=== PATIENT | female | born 1935 | race Caucasian/White ===

== ENCOUNTER → 2017-01-12 | Outpatient (CLI) | payer MEDICARE, BC ==
[~2017-01-12] MED LIST: ASPI-515 PO; ATEN50TA41 PO; FLUT10SP INH; HYDR-3138 PO; LEVO75TA5 PO; SERT100T PO; SERT100T5 PO; SIMV20TA3 PO; SPIR50TA2 PO
== END | disposition home or self-care (01) ==
LOC: CFH 13:25
PROVIDERS: ATTEND Family Medicine
DX: Z13.820 Encounter for screening for osteoporosis (principal); M85.89 Other specified disorders of bone density and structure, multiple sites
CPT/HCPCS: 77080

== ENCOUNTER 2017-04-16 14:32 | Emergency (ER) | payer MEDICARE, BC ==
[~2017-04-16] VITALS: Ht 162.6 cm; Wt 87.9 kg
[2017-04-16 15:46] LABS: BLOOD UREA NITROGEN 9 mg/dL (7-18)
[2017-04-16 15:51] LABS: ASPARTATE AMINO TRANSFERASE 24 U/L (15-37); IS PT STATUS REG ER OR PRE ER? YES
[2017-04-16 17:27] VITALS: BP 153/65
== END 2017-04-16 17:29 | disposition home or self-care (01) ==
LOC: ED 17:26
DX: I50.1 Left ventricular failure, unspecified (principal); J32.1 Chronic frontal sinusitis; E78.5 Hyperlipidemia, unspecified; I10 Essential (primary) hypertension
CPT/HCPCS: 36415; 80053; 83880; 84484; 85025; 93005; 99285

== ENCOUNTER → 2017-05-12 | Outpatient (CLI) | payer MEDICARE, BC ==
[~2017-05-12] MED LIST changes: +OMNIPAQUE 350 MG/ML, 75ML BOTTLE ONE
== END | disposition home or self-care (01) ==
LOC: CFH 11:05
PROVIDERS: ATTEND Family Medicine
DX: I51.7 Cardiomegaly (principal); J98.4 Other disorders of lung; R93.8 Abnormal findings on diagnostic imaging of other specified body structures; I25.10 Atherosclerotic heart disease of native coronary artery without angina pectoris; I70.0 Atherosclerosis of aorta; K76.0 Fatty (change of) liver, not elsewhere classified; K76.89 Other specified diseases of liver; M48.56XA Collapsed vertebra, not elsewhere classified, lumbar region, initial encounter for fracture; Z90.49 Acquired absence of other specified parts of digestive tract
CPT/HCPCS: 71260; Q9967

== ENCOUNTER 2017-07-18 12:29 | Emergency (ER) | payer MEDICARE, BC ==
[~2017-07-18] VITALS: Ht 160 cm; Wt 90.9 kg
[~2017-07-18 12:29] MED LIST changes: -HYDR-3138 PO; +HYDR-3237 PO; -OMNIPAQUE 350 MG/ML, 75ML BOTTLE ONE
[2017-07-18 12:30] VITALS: BP 188/77
== END 2017-07-18 14:14 | disposition home or self-care (01) ==
LOC: ED 14:00
DX: S00.12XA Contusion of left eyelid and periocular area, initial encounter (principal); E78.5 Hyperlipidemia, unspecified; I10 Essential (primary) hypertension; W19.XXXA Unspecified fall, initial encounter; Y93.89 Activity, other specified; Y92.89 Other specified places as the place of occurrence of the external cause; Y99.9 Unspecified external cause status
CPT/HCPCS: 70450; 70486; 99284

== ENCOUNTER 2019-03-04 11:42 | Inpatient (IN) | payer MEDICARE, BC ==
[~2019-03-04] VITALS: Ht 162.6 cm; Wt 89.9 kg
[~2019-03-04 11:42] MED LIST changes: +SERT100T32 PO; -SERT100T5 PO; -SPIR50TA2 PO; +SPIR50TA4 PO
[2019-03-04] MEDS ORDERED: ASPIRIN 81 MG TABLET CHEW PO ONE (12:00)
[2019-03-04 12:15] LABS: BASOPHILS # (AUTO) 0.02 x10^3/uL (0-0.1); BASOPHILS % (AUTO) 0 % (0-1); EOSINOPHILS # (AUTO) 0.15 x10^3/uL (0-0.4); EOSINOPHILS % (AUTO) 2 % (1-7); LYMPHOCYTES # (AUTO) 1.69 x10^3/uL (1-3.4); LYMPHOCYTES % (AUTO) 20 % (22-44); MD NO; MEAN CORPUSCULAR HEMOGLOBIN 31.2 pg (27.0-34.8); MEAN CORPUSCULAR HGB CONC 32.9 g/dL (32.4-35.8); MEAN CORPUSCULAR VOLUME 94.9 fL (80-100); MEAN PLATELET VOLUME 8.1 fL (7.4-10.4); MONOCYTES # (AUTO) 0.38 x10^3/uL (0.2-0.8); MONOCYTES % (AUTO) 5 % (2-9); NEUTROPHILS # (AUTO) 6.12 x10^3/uL (1.8-6.8); NEUTROPHILS % (AUTO) 73 % (42-75); PLATELET COUNT 204 x10^3/uL (130-400); RED BLOOD COUNT 4.49 x10^6/uL (3.82-5.3); RED CELL DISTRIBUTION WIDTH 13.8 % (9.6-15.2)
[2019-03-04 12:28] LABS: ANION GAP 7 mmol/L (5-15); CALCIUM 10.2 mg/dL (8.5-10.1); CHLORIDE 102 mmol/L (98-107)
[2019-03-04 12:34] LABS: ALANINE AMINOTRANSFERASE 49 U/L (12-78); ALKALINE PHOSPHATASE 74 U/L (45-117); BILIRUBIN,TOTAL 0.9 mg/dL (0.2-1.0); CREATININE 0.78 mg/dL (0.55-1.02); TOTAL PROTEIN 7.6 g/dL (6.4-8.2); TROPONIN I < 0.015 ng/mL (0.000-0.045)
--- NOTE | 2019-03-04 12:37 | NUR ---
CARDIZEM GIVEN AND HR AFIB IN 80'S, PT RESTING IN [facility], STATES SHE "CANNOT FEEL HEART ANYMORE". CALL LIGHT WITHIN REACH
[2019-03-04] MEDS ORDERED: OMEP-110 PO (13:02)
[2019-03-04] MEDS ORDERED: ASPIRIN 81 MG TABLET CHEW ONE (13:15)
[2019-03-04] MEDS ORDERED: DILTIAZEM 5 MG/ML, 10ML ONE (13:22)
--- NOTE | 2019-03-04 13:39 | NUR ---
MD AT BEDSIDE, PT TB ADMITTED. PT AMBULATED TO BATHROOM. HR [id number] AFTER AFTER AMBULTION. PT STATES SHE STILL FEELS BETTER. CALL LIGHT WITHIN REACH, AT [facility]
[2019-03-04] MEDS ORDERED: DILTIAZEM 5 MG/ML, 5ML IVPush ONE (14:00)
--- NOTE | 2019-03-04 14:46 | NUR ---
PT RESTING IN [facility] GIVEN. PT TO BE ADMITTED, AWAITING ADMIT ORDERS
[2019-03-04] MEDS ORDERED: FUROSEMIDE 20 MG/2 ML ONE (14:55)
[2019-03-04] MEDS: FUROSEMIDE 20 MG/2 ML IV SCH (14:58)
--- NOTE | 2019-03-04 15:42 | NUR ---
ADMITTING HOSPITALIST AT BEDSIDE
[2019-03-04] MEDS ORDERED: DOCUSATE 100 MG CAPSULE PO PRN (16:00)
[2019-03-04] MEDS ORDERED: ONDANSETRON ODT 4 MG PO PRN (16:00)
[2019-03-04] MEDS ORDERED: LABETALOL 5 MG/ML SYRINGE IVPush PRN (16:00)
[2019-03-04] MEDS ORDERED: ENALAPRILAT 1.25 MG/ML, 2ML IVPush PRN (16:00)
[2019-03-04] MEDS ORDERED: POLYETHYLENE GLYCOL 17 GM PACKET PO PRN (16:00)
[2019-03-04] MEDS ORDERED: ACETAMINOPHEN 325 MG TABLET PO PRN (16:00)
[2019-03-04] MEDS ORDERED: BISACODYL 10 MG SUPP PR PRN (16:00)
[2019-03-04] MEDS ORDERED: ONDANSETRON 2MG/ML, 2ML IVPush PRN (16:00)
--- NOTE | 2019-03-04 16:34 | NUR ---
REPORT TO MICHELLE MATA
[2019-03-04 17:26] VITALS: BP 162/103
[2019-03-04] MEDS ORDERED: DILTIAZEM 5 MG/ML, 5ML IVPush PRN (17:30)
[2019-03-04] MEDS ORDERED: ENOXAPARIN 40 MG/0.4 ML SQ SCH (18:00)
[2019-03-04 20:49] VITALS: BP 117/71
[2019-03-04] MEDS: SIMVASTATIN 20 MG TABLET PO SCH (21:23)
[2019-03-05 03:30] VITALS: BP 151/87
[2019-03-05 06:01] LABS: BASOPHILS # (AUTO) 0.03 x10^3/uL (0-0.1); BASOPHILS % (AUTO) 0 % (0-1); EOSINOPHILS # (AUTO) 0.26 x10^3/uL (0-0.4); EOSINOPHILS % (AUTO) 3 % (1-7); LYMPHOCYTES # (AUTO) 1.64 x10^3/uL (1-3.4); LYMPHOCYTES % (AUTO) 21 % (22-44); MD NO; MEAN CORPUSCULAR HEMOGLOBIN 31.5 pg (27.0-34.8); MEAN CORPUSCULAR HGB CONC 33.1 g/dL (32.4-35.8); MEAN CORPUSCULAR VOLUME 95.1 fL (80-100); MEAN PLATELET VOLUME 8.4 fL (7.4-10.4); MONOCYTES # (AUTO) 0.52 x10^3/uL (0.2-0.8); MONOCYTES % (AUTO) 7 % (2-9); NEUTROPHILS # (AUTO) 5.47 x10^3/uL (1.8-6.8); NEUTROPHILS % (AUTO) 69 % (42-75); PLATELET COUNT 185 x10^3/uL (130-400); RED BLOOD COUNT 4.46 x10^6/uL (3.82-5.3); RED CELL DISTRIBUTION WIDTH 13.8 % (9.6-15.2)
[2019-03-05 06:33] LABS: ANION GAP 7 mmol/L (5-15); CALCIUM 10.3 mg/dL (8.5-10.1); CHLORIDE 104 mmol/L (98-107)
[2019-03-05 06:42] LABS: CREATININE 0.68 mg/dL (0.55-1.02)
[2019-03-05 06:58] VITALS: BP 138/89
[2019-03-05] MEDS: ASPIRIN 81 MG TABLET EC PO SCH (08:13)
[2019-03-05] MEDS: SPIRONOLACTONE 50 MG TABLET PO SCH (08:13)
[2019-03-05] MEDS: FUROSEMIDE 20 MG/2 ML IV SCH ×2 (08:13→17:15)
[2019-03-05] MEDS: OMEPRAZOLE 20 MG CAPSULE.DR PO SCH (08:13)
[2019-03-05] MEDS: LEVOTHYROXINE 75 MCG TABLET PO SCH (08:14)
[2019-03-05] MEDS ORDERED: ATENOLOL 50 MG TABLET PO SCH (09:00)
[2019-03-05] MEDS ORDERED: METOPROLOL 1 MG/ML, 5ML IVPush ONE (09:00)
[2019-03-05] MEDS: ENOXAPARIN 100 MG/ML SQ SCH ×2 (11:27→23:40)
[2019-03-05] MEDS: LISINOPRIL 5 MG TABLET PO SCH (11:27)
[2019-03-05 12:23] VITALS: BP 114/80
[2019-03-05 20:03] VITALS: BP 110/65
[2019-03-05] MEDS: SIMVASTATIN 20 MG TABLET PO SCH (20:26)
[2019-03-06 01:50] VITALS: BP 124/88
[2019-03-06 05:27] LABS: BASOPHILS # (AUTO) 0.02 x10^3/uL (0-0.1); BASOPHILS % (AUTO) 0 % (0-1); EOSINOPHILS # (AUTO) 0.35 x10^3/uL (0-0.4); EOSINOPHILS % (AUTO) 4 % (1-7); LYMPHOCYTES # (AUTO) 2.04 x10^3/uL (1-3.4); LYMPHOCYTES % (AUTO) 22 % (22-44); MD NO; MEAN CORPUSCULAR HEMOGLOBIN 31.2 pg (27.0-34.8); MEAN CORPUSCULAR HGB CONC 32.9 g/dL (32.4-35.8); MEAN PLATELET VOLUME 8.3 fL (7.4-10.4); MONOCYTES % (AUTO) 8 % (2-9); NEUTROPHILS # (AUTO) 6.05 x10^3/uL (1.8-6.8); NEUTROPHILS % (AUTO) 66 % (42-75); PLATELET COUNT 195 x10^3/uL (130-400); RED BLOOD COUNT 4.55 x10^6/uL (3.82-5.3)
[2019-03-06 05:41] LABS: CHLORIDE 100 mmol/L (98-107)
[2019-03-06 05:54] LABS: ALANINE AMINOTRANSFERASE 42 U/L (12-78); ALBUMIN 3.6 g/dL (3.4-5.0); ALKALINE PHOSPHATASE 64 U/L (45-117); ANION GAP 6 mmol/L (5-15); BILIRUBIN,TOTAL 0.7 mg/dL (0.2-1.0); CALCIUM 9.9 mg/dL (8.5-10.1); CREATININE 0.75 mg/dL (0.55-1.02); TOTAL PROTEIN 7.2 g/dL (6.4-8.2)
[2019-03-06] MEDS ORDERED: METOPROLOL SUCCINATE 25 MG TAB.ER.24H PO SCH (06:00)
[2019-03-06 07:20] VITALS: BP 133/86
[2019-03-06] MEDS: FUROSEMIDE 20 MG/2 ML IV SCH ×3 (08:00→17:54)
[2019-03-06] MEDS: OMEPRAZOLE 20 MG CAPSULE.DR PO SCH (08:01)
[2019-03-06] MEDS: SPIRONOLACTONE 50 MG TABLET PO SCH (08:01)
[2019-03-06] MEDS: LEVOTHYROXINE 75 MCG TABLET PO SCH (08:01)
[2019-03-06] MEDS: ASPIRIN 81 MG TABLET EC PO SCH (08:01)
[2019-03-06] MEDS: LISINOPRIL 5 MG TABLET PO SCH (08:01)
[2019-03-06] MEDS ORDERED: METOPROLOL SUCCINATE 25 MG TAB.ER.24H PO ONE (11:30)
[2019-03-06 12:34] VITALS: BP 116/65
[2019-03-06] MEDS ORDERED: DIGOXIN 0.25 MG/ML, 2ML IVPush ONE ×3 (15:30→21:30)
[2019-03-06] MEDS ORDERED: DIGOXIN 0.25 MG/ML, 2ML IV ONE ×2 (15:30)
[2019-03-06 19:41] VITALS: BP 119/65
[2019-03-06] MEDS: SIMVASTATIN 20 MG TABLET PO SCH (20:32)
[2019-03-06] MEDS: APIXABAN 5 MG TABLET PO SCH (20:32)
[2019-03-07 01:27] VITALS: BP 122/94
[2019-03-07] MEDS ORDERED: DIGOXIN 0.25 MG/ML, 2ML IVPush ONE ×2 (03:30)
[2019-03-07 05:24] LABS: BASOPHILS # (AUTO) 0.02 x10^3/uL (0-0.1); BASOPHILS % (AUTO) 0 % (0-1); EOSINOPHILS # (AUTO) 0.31 x10^3/uL (0-0.4); EOSINOPHILS % (AUTO) 3 % (1-7); LYMPHOCYTES # (AUTO) 2.03 x10^3/uL (1-3.4); LYMPHOCYTES % (AUTO) 21 % (22-44); MD NO; MEAN CORPUSCULAR HEMOGLOBIN 31.4 pg (27.0-34.8); MEAN CORPUSCULAR HGB CONC 33.1 g/dL (32.4-35.8); MEAN CORPUSCULAR VOLUME 95.1 fL (80-100); MONOCYTES # (AUTO) 0.67 x10^3/uL (0.2-0.8); MONOCYTES % (AUTO) 7 % (2-9); NEUTROPHILS # (AUTO) 6.85 x10^3/uL (1.8-6.8); NEUTROPHILS % (AUTO) 69 % (42-75); PLATELET COUNT 190 x10^3/uL (130-400); RED BLOOD COUNT 4.91 x10^6/uL (3.82-5.3); RED CELL DISTRIBUTION WIDTH 13.9 % (9.6-15.2)
[2019-03-07 05:35] LABS: ALANINE AMINOTRANSFERASE 41 U/L (12-78); ALBUMIN 3.8 g/dL (3.4-5.0); ANION GAP 7 mmol/L (5-15); CALCIUM 10.2 mg/dL (8.5-10.1); CHLORIDE 98 mmol/L (98-107)
[2019-03-07 05:37] LABS: ALKALINE PHOSPHATASE 66 U/L (45-117); BILIRUBIN,TOTAL 0.8 mg/dL (0.2-1.0); TOTAL PROTEIN 7.2 g/dL (6.4-8.2)
[2019-03-07] MEDS ORDERED: METOPROLOL SUCCINATE 50 MG TAB.ER.24H PO SCH ×2 (06:00)
[2019-03-07] MEDS ORDERED: METOPROLOL SUCCINATE 25 MG TAB.ER.24H ONE (08:30)
[2019-03-07 08:37] VITALS: BP 108/72
[2019-03-07] MEDS: APIXABAN 5 MG TABLET PO SCH (08:46)
[2019-03-07] MEDS: LEVOTHYROXINE 75 MCG TABLET PO SCH (08:46)
[2019-03-07] MEDS: SPIRONOLACTONE 50 MG TABLET PO SCH (08:47)
[2019-03-07] MEDS: LISINOPRIL 5 MG TABLET PO SCH (08:47)
[2019-03-07] MEDS: OMEPRAZOLE 20 MG CAPSULE.DR PO SCH (08:47)
[2019-03-07] MEDS: ASPIRIN 81 MG TABLET EC PO SCH (08:47)
[2019-03-07] MEDS ORDERED: FUROSEMIDE 40 MG TABLET PO SCH (09:00)
[2019-03-07 13:50] VITALS: BP 112/73
[2019-03-07] MEDS ORDERED: APIX5TAB PO (14:26)
[2019-03-07] MEDS ORDERED: DIGO250T PO (14:26)
[2019-03-07] MEDS ORDERED: METO-93 PO (14:26)
[2019-03-07] MEDS ORDERED: FURO40TA6 PO (14:26)
[2019-03-08] MEDS ORDERED: DIGOXIN 0.25 MG TABLET PO SCH (09:00)
== END 2019-03-07 17:15 | disposition home health service (06) | DRG 291 ==
LOC: ED 13:03 → EDIP 16:16 → 5SO 17:14 → DCLOUNGE 03-07 16:35
PROVIDERS: ADMIT Hospitalist; ATTEND Hospitalist
DX: I11.0 Hypertensive heart disease with heart failure (principal); J96.00 Acute respiratory failure, unspecified whether with hypoxia or hypercapnia; E87.1 Hypo-osmolality and hyponatremia; I50.43 Acute on chronic combined systolic (congestive) and diastolic (congestive) heart failure; I48.2 Chronic atrial fibrillation; E03.9 Hypothyroidism, unspecified; E78.5 Hyperlipidemia, unspecified; F32.9 Major depressive disorder, single episode, unspecified; F41.9 Anxiety disorder, unspecified; G89.29 Other chronic pain; M54.9 Dorsalgia, unspecified; Z88.0 Allergy status to penicillin; I35.8 Other nonrheumatic aortic valve disorders; I45.10 Unspecified right bundle-branch block; Z79.82 Long term (current) use of aspirin; Z80.0 Family history of malignant neoplasm of digestive organs; Z82.3 Family history of stroke; Z90.710 Acquired absence of both cervix and uterus
CPT/HCPCS: 36415; 71046; 80048; 80053; 83735; 83880; 84443; 84484; 85025; 93005; 93306; 96374; 96375; 99285; G0378; J1650; J1160; J1940

== ENCOUNTER 2019-10-02 12:05 | Inpatient (IN) | payer MEDICARE, BC ==
[~2019-10-02] VITALS: Ht 160 cm; Wt 72.5 kg
[~2019-10-02 12:05] MED LIST changes: +APIX5TAB PO; +DIGO250T PO; +FURO40TA6 PO; +METO-93 PO; +OMEP-110 PO
[2019-10-02 13:18] LABS: PH, VENOUS 7.309 pH (7.320-7.420)
[2019-10-02 13:19] LABS: BASOPHILS # (AUTO) 0.05 x10^3/uL (0-0.1); BASOPHILS % (AUTO) 1 % (0-1); EOSINOPHILS # (AUTO) 0.06 x10^3/uL (0-0.4); EOSINOPHILS % (AUTO) 1 % (1-7); LYMPHOCYTES # (AUTO) 1.11 x10^3/uL (1-3.4); LYMPHOCYTES % (AUTO) 15 % (22-44); MD NO; MEAN CORPUSCULAR HEMOGLOBIN 30.2 pg (27.0-34.8); MEAN CORPUSCULAR HGB CONC 33.2 g/dL (32.4-35.8); MEAN CORPUSCULAR VOLUME 90.9 fL (80-100); MEAN PLATELET VOLUME 9.8 fL (7.4-10.4); MONOCYTES # (AUTO) 0.42 x10^3/uL (0.2-0.8); MONOCYTES % (AUTO) 6 % (2-9); NEUTROPHILS # (AUTO) 5.78 x10^3/uL (1.8-6.8); NEUTROPHILS % (AUTO) 78 % (42-75); PLATELET COUNT 157 x10^3/uL (130-400); RED BLOOD COUNT 5.26 x10^6/uL (3.82-5.3); RED CELL DISTRIBUTION WIDTH 15.5 % (9.6-15.2)
[2019-10-02 13:32] LABS: ALANINE AMINOTRANSFERASE 19 U/L (12-78); ALBUMIN 3.6 g/dL (3.4-5.0); ANION GAP 18 mmol/L (5-15); CALCIUM 10.2 mg/dL (8.5-10.1); CHLORIDE 91 mmol/L (98-107); CREATININE 0.97 mg/dL (0.55-1.02)
[2019-10-02 13:34] LABS: ALKALINE PHOSPHATASE 95 U/L (45-117); BILIRUBIN,TOTAL 0.8 mg/dL (0.2-1.0); TOTAL PROTEIN 7.4 g/dL (6.4-8.2)
[2019-10-02] MEDS ORDERED: SODIUM CHLORIDE 0.9% 1,000ML IVBOLUS ONE (14:00)
--- NOTE | 2019-10-02 14:01 | NUR ---
PT UPRIGHT ON GURNEY AWAKE & COMFORTABLE, RESPONDS APPROP TO STAFF, NAD, COMFORT MEASURES PROVIDED, AT BS, CALL LIGHT WITHIN REACH.
[2019-10-02 14:07] LABS: MICROSCOPIC NOT IND
[2019-10-02 14:12] LABS: ACETONE, SERUM Large (80mg/dL) mg/dL (Negative)
[2019-10-02 14:19] LABS: CULTURE INDICATED? NO
[2019-10-02] MEDS ORDERED: INSULIN REGULAR 100 UNITS/ML, 3ML VIAL SQ-INSULIN ONE (14:30)
[2019-10-02] MEDS ORDERED: INSULIN SINGLE DOSE, ER ONE (14:58)
--- NOTE | 2019-10-02 15:02 | NUR ---
PT REMAINS UPRIGHT ON GURNEY AWAKE & COMFORTABLE, RESPONDS APPROP TO STAFF, NAD, COMFORT MEASURES PROVIDED, AT BS, CALL LIGHT WITHIN REACH.
--- NOTE | 2019-10-02 15:50 | NUR ---
Pt to be admitted to [facility], room 494-2. Report called to Marcial.
[2019-10-02] MEDS ORDERED: ONDANSETRON 2MG/ML, 2ML IVPush PRN (16:00)
[2019-10-02] MEDS ORDERED: HEPARIN 5,000 UNITS/ML, 1ML SQ SCH (16:00)
[2019-10-02] MEDS ORDERED: INSULIN LISPRO 100 UNITS/ML, PEN SQ-INSULIN SCH (16:00)
[2019-10-02] MEDS ORDERED: hydrALAzine 20 MG/ML, 1ML IVPush PRN (16:00)
[2019-10-02] MEDS ORDERED: INSULIN REGULAR 100 UNITS/ML, 3ML VIAL IVPush ONE (16:00)
[2019-10-02] MEDS ORDERED: ACETAMINOPHEN 325 MG TABLET PO PRN (16:00)
[2019-10-02 16:32] VITALS: BP 136/82
[2019-10-02] MEDS ORDERED: SIMV20TA PO (16:47)
[2019-10-02] MEDS: NS + 20MEQ KCL 1,000 ML IV SCH (17:25)
[2019-10-02] MEDS: INSULIN LISPRO 100 UNITS/ML, PEN SQ-INSULIN SCH (19:58)
[2019-10-02] MEDS: APIXABAN 5 MG TABLET PO SCH (19:59)
[2019-10-02] MEDS: INSULIN GLARGINE 100 UNITS/ML, PEN SQ-INSULIN SCH (19:59)
[2019-10-02 20:29] VITALS: BP 141/84
[2019-10-02] MEDS ORDERED: MELATONIN 5 MG TABLET PO PRN (23:30)
[2019-10-02] MEDS ORDERED: MELATONIN 3 MG TABLET ONE (23:31)
[2019-10-02] MEDS: MELATONIN 3 MG TABLET PO PRN (23:45)
[2019-10-03] MEDS: NS + 20MEQ KCL 1,000 ML IV SCH ×2 (01:47→09:30)
[2019-10-03 01:48] VITALS: BP 138/76
[2019-10-03 03:07] LABS: ANION GAP 9 mmol/L (5-15); CALCIUM 9.4 mg/dL (8.5-10.1); CHLORIDE 104 mmol/L (98-107); CREATININE 0.63 mg/dL (0.55-1.02)
[2019-10-03] MEDS ORDERED: POTASSIUM CHLORIDE 20 MEQ TAB.ER.PRT PO ONE (03:30)
[2019-10-03] MEDS ORDERED: METOPROLOL SUCCINATE 25 MG TAB.ER.24H PO SCH (06:00)
[2019-10-03 06:04] LABS: BASOPHILS # (AUTO) 0.04 x10^3/uL (0-0.1); BASOPHILS % (AUTO) 1 % (0-1); EOSINOPHILS # (AUTO) 0.22 x10^3/uL (0-0.4); EOSINOPHILS % (AUTO) 3 % (1-7); LYMPHOCYTES # (AUTO) 1.71 x10^3/uL (1-3.4); LYMPHOCYTES % (AUTO) 27 % (22-44); MD NO; MEAN CORPUSCULAR HEMOGLOBIN 29.8 pg (27.0-34.8); MEAN CORPUSCULAR HGB CONC 32.9 g/dL (32.4-35.8); MEAN CORPUSCULAR VOLUME 90.6 fL (80-100); MEAN PLATELET VOLUME 9.1 fL (7.4-10.4); MONOCYTES # (AUTO) 0.49 x10^3/uL (0.2-0.8); MONOCYTES % (AUTO) 8 % (2-9); NEUTROPHILS % (AUTO) 62 % (42-75); PLATELET COUNT 136 x10^3/uL (130-400); RED BLOOD COUNT 4.61 x10^6/uL (3.82-5.3); RED CELL DISTRIBUTION WIDTH 15.5 % (9.6-15.2)
[2019-10-03 06:09] VITALS: BP 98/62
[2019-10-03 06:12] LABS: CHLORIDE 104 mmol/L (98-107)
[2019-10-03 06:20] LABS: ANION GAP 11 mmol/L (5-15); CALCIUM 9.2 mg/dL (8.5-10.1); CREATININE 0.53 mg/dL (0.55-1.02)
[2019-10-03] MEDS: CARVEDILOL 3.125 MG TABLET PO SCH ×2 (06:34→16:56)
[2019-10-03 08:10] LABS: ANION GAP 9 mmol/L (5-15); CALCIUM 8.9 mg/dL (8.5-10.1); CHLORIDE 101 mmol/L (98-107); CREATININE 0.69 mg/dL (0.55-1.02)
[2019-10-03 08:35] VITALS: BP 104/53
[2019-10-03] MEDS: INSULIN LISPRO 100 UNITS/ML, PEN SQ-INSULIN SCH ×6 (08:46→23:24)
[2019-10-03] MEDS: SENNA/DOCUSATE TABLET PO SCH (08:47)
[2019-10-03] MEDS: LEVOTHYROXINE 75 MCG TABLET PO SCH (08:47)
[2019-10-03] MEDS: DIGOXIN 0.25 MG TABLET PO SCH (08:47)
[2019-10-03] MEDS: APIXABAN 5 MG TABLET PO SCH ×2 (08:47→20:24)
[2019-10-03] MEDS: INSULIN GLARGINE 100 UNITS/ML, PEN SQ-INSULIN SCH ×2 (08:47→20:25)
[2019-10-03 13:54] VITALS: BP 100/62
[2019-10-03 19:27] VITALS: BP 92/53
[2019-10-03 21:36] LABS: ANION GAP 7 mmol/L (5-15); CALCIUM 9.4 mg/dL (8.5-10.1); CHLORIDE 103 mmol/L (98-107); CREATININE 0.78 mg/dL (0.55-1.02)
[2019-10-04 01:00] VITALS: BP 107/80
[2019-10-04] MEDS: INSULIN LISPRO 100 UNITS/ML, PEN SQ-INSULIN SCH ×6 (02:24→20:01)
[2019-10-04] MEDS: CARVEDILOL 3.125 MG TABLET PO SCH ×3 (05:28→18:34)
[2019-10-04 06:20] LABS: ANION GAP 7 mmol/L (5-15); CALCIUM 9.7 mg/dL (8.5-10.1); CHLORIDE 110 mmol/L (98-107); CREATININE 0.44 mg/dL (0.55-1.02)
[2019-10-04] MEDS ORDERED: SODIUM CHLORIDE 0.9% 1,000ML IVBOLUS ONE (07:30)
[2019-10-04 07:37] VITALS: BP 105/79
[2019-10-04] MEDS: DIGOXIN 0.25 MG TABLET PO SCH (09:04)
[2019-10-04] MEDS: INSULIN GLARGINE 100 UNITS/ML, PEN SQ-INSULIN SCH ×2 (09:04→20:01)
[2019-10-04] MEDS: POTASSIUM CHLORIDE 20 MEQ TAB.ER.PRT PO SCH ×2 (09:05→18:34)
[2019-10-04] MEDS: SENNA/DOCUSATE TABLET PO SCH (09:05)
[2019-10-04] MEDS: APIXABAN 5 MG TABLET PO SCH ×2 (09:05→20:00)
[2019-10-04] MEDS: LEVOTHYROXINE 75 MCG TABLET PO SCH (09:05)
[2019-10-04] MEDS ORDERED: DIPHENHYDRAMINE 25 MG CAPSULE PO ONE (12:00)
[2019-10-04 12:53] VITALS: BP 103/55
[2019-10-04 18:31] VITALS: BP 109/62
[2019-10-04] MEDS: CALAMINE LOTION 180ML TP PRN (19:25)
[2019-10-04 19:50] VITALS: BP 99/60
[2019-10-04 19:59] LABS: ANION GAP 8 mmol/L (5-15); CALCIUM 9.3 mg/dL (8.5-10.1); CHLORIDE 105 mmol/L (98-107); CREATININE 0.76 mg/dL (0.55-1.02)
[2019-10-04] MEDS ORDERED: DIPHENHYDRAMINE 50 MG/ML, 1ML IVPush ONE (20:00)
[2019-10-05 00:12] VITALS: BP 123/75
[2019-10-05] MEDS ORDERED: methylPREDNISolone SOD SUCC 125 MG/2 ML IVPush ONE (00:30)
[2019-10-05 04:33] LABS: ANION GAP 6 mmol/L (5-15); CALCIUM 9.8 mg/dL (8.5-10.1); CHLORIDE 113 mmol/L (98-107); CREATININE 0.45 mg/dL (0.55-1.02)
[2019-10-05] MEDS: CARVEDILOL 3.125 MG TABLET PO SCH (05:45)
[2019-10-05] MEDS: LEVOTHYROXINE 75 MCG TABLET PO SCH (05:46)
[2019-10-05 07:38] VITALS: BP 134/77
[2019-10-05] MEDS: APIXABAN 5 MG TABLET PO SCH ×2 (09:12→20:33)
[2019-10-05] MEDS: POTASSIUM CHLORIDE 20 MEQ TAB.ER.PRT PO SCH (09:12)
[2019-10-05] MEDS: SENNA/DOCUSATE TABLET PO SCH (09:14)
[2019-10-05] MEDS: INSULIN LISPRO 100 UNITS/ML, PEN SQ-INSULIN SCH ×7 (09:15→20:34)
[2019-10-05] MEDS: INSULIN GLARGINE 100 UNITS/ML, PEN SQ-INSULIN SCH ×2 (09:16→20:34)
[2019-10-05] MEDS: METOPROLOL SUCCINATE 50 MG TAB.ER.24H PO SCH (09:18)
[2019-10-05] MEDS: DIGOXIN 0.25 MG TABLET PO SCH (09:19)
[2019-10-05] MEDS: CALAMINE LOTION 180ML TP PRN (12:26)
[2019-10-05 12:30] VITALS: BP 103/59
[2019-10-05 19:39] VITALS: BP 117/72
[2019-10-05 22:21] LABS: ANION GAP 4 mmol/L (5-15); CALCIUM 9.8 mg/dL (8.5-10.1); CHLORIDE 105 mmol/L (98-107); CREATININE 0.67 mg/dL (0.55-1.02)
[2019-10-05] MEDS: MELATONIN 3 MG TABLET PO PRN (23:46)
[2019-10-06] VITALS: BP 119/72
[2019-10-06] MEDS: LEVOTHYROXINE 75 MCG TABLET PO SCH (05:51)
[2019-10-06] MEDS: METOPROLOL SUCCINATE 50 MG TAB.ER.24H PO SCH (05:51)
[2019-10-06] MEDS: INSULIN LISPRO 100 UNITS/ML, PEN SQ-INSULIN SCH ×7 (07:00→21:31)
[2019-10-06 07:03] VITALS: BP 101/68
[2019-10-06] MEDS: SENNA/DOCUSATE TABLET PO SCH (09:08)
[2019-10-06] MEDS: DIGOXIN 0.25 MG TABLET PO SCH (09:08)
[2019-10-06] MEDS: APIXABAN 5 MG TABLET PO SCH ×2 (09:08→21:31)
[2019-10-06] MEDS: INSULIN GLARGINE 100 UNITS/ML, PEN SQ-INSULIN SCH ×2 (09:10→21:31)
[2019-10-06 09:12] LABS: ANION GAP 6 mmol/L (5-15); CALCIUM 9.9 mg/dL (8.5-10.1); CHLORIDE 110 mmol/L (98-107); CREATININE 0.52 mg/dL (0.55-1.02)
[2019-10-06 12:10] VITALS: BP 104/56
[2019-10-06] MEDS: CALAMINE LOTION 180ML TP PRN ×2 (12:35→21:36)
[2019-10-06 20:15] VITALS: BP 102/59
[2019-10-06] MEDS: MELATONIN 3 MG TABLET PO PRN (21:31)
[2019-10-06 21:38] LABS: ANION GAP 6 mmol/L (5-15); CALCIUM 9.6 mg/dL (8.5-10.1); CHLORIDE 108 mmol/L (98-107); CREATININE 0.74 mg/dL (0.55-1.02)
[2019-10-07 00:30] VITALS: BP 130/77
[2019-10-07] MEDS: LEVOTHYROXINE 75 MCG TABLET PO SCH (06:22)
[2019-10-07] MEDS: METOPROLOL SUCCINATE 50 MG TAB.ER.24H PO SCH (06:22)
[2019-10-07 06:35] VITALS: BP 105/64
[2019-10-07 06:51] LABS: ANION GAP 5 mmol/L (5-15); CALCIUM 8.9 mg/dL (8.5-10.1); CHLORIDE 112 mmol/L (98-107); CREATININE 0.46 mg/dL (0.55-1.02)
[2019-10-07] MEDS: INSULIN LISPRO 100 UNITS/ML, PEN SQ-INSULIN SCH ×6 (07:00→17:08)
[2019-10-07] MEDS: APIXABAN 5 MG TABLET PO SCH (09:02)
[2019-10-07] MEDS: INSULIN GLARGINE 100 UNITS/ML, PEN SQ-INSULIN SCH (09:02)
[2019-10-07] MEDS: SENNA/DOCUSATE TABLET PO SCH (09:02)
[2019-10-07] MEDS: DIGOXIN 0.25 MG TABLET PO SCH (09:03)
[2019-10-07 12:37] VITALS: BP 126/84
[2019-10-07] MEDS ORDERED: INSU100I13 SQ-INSULIN (13:45)
[2019-10-07] MEDS ORDERED: BLOO-1267 EXT (13:45)
[2019-10-07] MEDS ORDERED: INSU100I11 SQ-INSULIN (13:45)
== END 2019-10-07 18:19 | disposition home or self-care (01) | DRG 638 ==
LOC: ED 13:37 → EDIP 14:50 → 4EST 16:24
PROVIDERS: ADMIT Internal Medicine; ATTEND Hospitalist
DX: E11.10 Type 2 diabetes mellitus with ketoacidosis without coma (principal); E87.1 Hypo-osmolality and hyponatremia; I48.92 Unspecified atrial flutter; I48.91 Unspecified atrial fibrillation; E11.65 Type 2 diabetes mellitus with hyperglycemia; Z88.0 Allergy status to penicillin; E03.9 Hypothyroidism, unspecified; E78.5 Hyperlipidemia, unspecified; I11.0 Hypertensive heart disease with heart failure; I50.9 Heart failure, unspecified; Z79.01 Long term (current) use of anticoagulants; Z79.4 Long term (current) use of insulin
CPT/HCPCS: 36415; 71045; 80048; 80053; 80162; 81003; 82010; 82803; 82962; 83036; 83735; 83930; 84100; 85025; 93005; 99285; G0378; J1815; J3480; J1200; J2930; J7030; Q0163